=== PATIENT | female | born 1940 | race Caucasian/White ===

== ENCOUNTER 2019-12-27 11:33 | Emergency (ER) | payer MEDICARE, MEDICAID ==
[~2019-12-27] VITALS: Ht 172.7 cm; Wt 70.3 kg
--- NOTE | 2019-12-27 11:53 | Emergency Room Report ---
History of Present Illness General Chief Complaint: Back Pain-No Injury Source: Patient, EMS Present Illness HPI Disclaimer: Please note that this report is being documented using DRAGON technology. This can lead to erroneous entry secondary to incorrect interpretation by the dictating instrument. HPI: 79-year-old female presents for evaluation of back pain. Patient notes bilateral aching back without trauma, fall, bending or twisting injury. She states she is also having urinary frequency going approximately 10 times daily as well as urgency. Denies significant dysuria, hematuria, fever, chills. Denies abdominal pain or vomiting. States she frequently gets urinary tract infections that should present in this manner. Otherwise in her usual state of health. PMH: Reviewed PSH: Reviewed Allergies: Reviewed Social Hx: Reviewed Allergies: Coded Allergies: No Known Allergies (Unverified , 12/27/19) COVID-19 Screening Contact w/high risk pt: No Experienced COVID-19 symptoms?: No COVID-19 Testing performed INSURANCE CLAIMS ASSISTANT: No Patient History Last Menstrual Period: na Nursing Documentation-PMH Past Medical History: No History, Except For Hx Hypertension: Yes Review of Systems All Other Systems: negative except mentioned in HPI Physical Exam Vital Signs Date Time Temp Pulse Resp B/P (MAP) Pulse Ox O2 Delivery O2 Flow Rate FiO2 12/27/19 11:28 98.1 89 18 158/92 (114) 98 Room Air General: Awake and alert, no acute distress HEENT: NC/AT. EOMI. Resp: Normal work of breathing Abdomen: Soft, nondistended. Mild tenderness suprapubic region. No rebound. No masses. No guarding. Skin: Intact. No abrasions, laceration or rash over the exposed skin MSK: Normal tone and bulk. Moving all extremities. No obvious deformity. Neuro: Awake and alert. Mentating appropriately Spine: Mild tenderness in the midline and paraspinal region and lower lumbar area. No point tenderness. No deformity. No step-off. No CVA tenderness. Medical Decision Making Diagnostic Impression: Primary Impression: UTI (urinary tract infection) Additional Impression: Back pain ER Course 79-year-old female presents for evaluation of urinary frequency and back pain. Differential includes was not limited to urinary tract infection, pyelonephritis, lumbar strain, sprain, muscle spasm among others. Patient states is a typical presentation for urinary tract infections which she states she has had all her life. Her urinalysis shows positive inflammatory markers and white cells but few bacteria. We will send for culture and start on Keflex. Clinically, I have little concern for fracture as there is been no trauma in the lower spine. She has no CVA tenderness to suggest pyelonephritis. Patient instructed to return to the emergency department any new or worsening symptoms and or monitor her symptoms closely. She understands agrees with treatment plan will be discharged home. Laboratory Tests Test 12/27/19 12:00 Urine Color Pale yellow Urine Appearance Clear Urine pH 6 (4.5-8.0) Urine Specific [place] 1.015 (1.005-1.035) Urine Protein 1+ (NEGATIVE) H Urine Glucose (UA) Negative (NEGATIVE) Urine Ketones Negative (NEGATIVE) Urine Blood 1+ (NEGATIVE) H Urine Nitrite Negative (NEGATIVE) Urine Bilirubin Negative (NEGATIVE) Urine Urobilinogen Normal MG/DL (0.0-1.0) Urine Leukocyte Esterase 3+ (NEGATIVE) H Urine RBC 0-2 /HPF (0 - 2) Urine WBC 5-10 /HPF (0 - 2) H Urine Squamous Epithelial Cells Few /LPF (NONE/OCC) Urine Bacteria Few /HPF (NONE) Last Vital Signs Date Time Temp Pulse Resp B/P (MAP) Pulse Ox O2 Delivery O2 Flow Rate FiO2 12/27/19 11:28 98.1 89 18 158/92 (114) 98 Room Air Disposition: HOME, SELF-CARE Condition: Stable Scripts Acetaminophen* (TYLENOL EXTRA STRENGTH*) 500 Mg Tablet 500 MG ORAL Q8H PRN for Prn Headache/Temp > 101, #30 TAB 0 Refills Prov: Matt Lopez MD 12/27/19 Cephalexin* (KEFLEX*) 500 Mg Capsule 500 MG ORAL EVERY 12 HOURS for 7 Days, #14 CAP 0 Refills Prov: Matt Lopez MD 12/27/19 Matt Lopez MD Dec 27, 2019 11:53
[2019-12-27 12:28] VITALS: BP 158/92
[2019-12-27 12:57] LABS: APPEARANCE,URINE CLEAR; BILIRUBIN, URINE NEGATIVE (NEGATIVE); COLOR,URINE PALE YELLOW; GLUCOSE, URINE (UA) NEGATIVE (NEGATIVE); KETONES,URINE NEGATIVE (NEGATIVE); LEUKOCYTE ESTERASE ,URINE 3+ (NEGATIVE); NITRITE,URINE NEGATIVE (NEGATIVE); PH,URINE 6 (4.5-8.0); PROTEIN,URINE 1+ (NEGATIVE); UROBILINOGEN,URINE NORMAL MG/DL (0.0-1.0)
[2019-12-27] MEDS ORDERED: CEPHALEXIN500 MG ORAL (13:23)
[2019-12-27] MEDS ORDERED: TYLENOL EXTRA500 MG ORAL (13:24)
[2019-12-27] MEDS ORDERED: Cephalexin 250mg/5ml Susp 100mL Bottle ORAL ONE (13:30)
[2019-12-27 14:10] VITALS: BP 146/89
== END 2019-12-27 14:20 | disposition home or self-care (01) ==
LOC: EDBD 11:33 → EMR 12:04
DX: N39.0 Urinary tract infection, site not specified (principal); M54.5 Low back pain; I10 Essential (primary) hypertension
CPT/HCPCS: 81003; 99282